=== PATIENT | male | born 1990 | race Caucasian/White ===

== ENCOUNTER 2018-08-11 11:10 | Inpatient (IN) ==
--- NOTE | 2018-08-11 08:17 | Discharge Summary ---
Orders not resulted at time of discharge: Pending orders 08/11/18 00:01 XR hip complete LT [XR] Routine H/H [Hemoglobin and Hematocrit] [HEME] Routine Date of Encounter: 08/12/18 Time of Encounter: 13:45 - Discharge Diagnosis (1) Status post total hip replacement, left Priority: Primary Status: Acute (2) Osteoarthritis of left hip Priority: Primary Status: Chronic Qualifiers: Osteoarthritis type: unspecified Qualified Code(s): M16.12 - Unilateral primary osteoarthritis, left hip (3) Avascular necrosis of bone of left hip Priority: Primary Status: Acute (4) Tobacco use Priority: Secondary Status: Acute (5) Alcohol use Priority: Secondary Status: Chronic - Hospital Course Hospital course: Mr. Parnell is a 27 year old male status post left total hip replacement robotic 08/11/18 with medical history of OA/AVN to left hip and tobacco/alcohol use. Patient seen at bedside, without complaints. A&O x 3 Afebrile, vital signs stable. Intermittent tachycardia likely related to alcohol withdraw and episodes of pain. Per nursing - patient admitted to drinking "4-5 beers + a pint" daily but he did not score on the CIWA scale and did not require medical intervention. He is asymptomatic. Will have home health recheck vitals tomorrow. Labs reviewed. H/H - 10.4/30.3 stable, asymptomatic Pain control: adequate Participating in PT. All questions and concerns addressed. Educated on use of incentive spirometer. Encouraged ambulation and proper hydration. Patient educated on post-operative restrictions and post-operative care. Assessment and plan: Continue with postoperative care Discharge plan: Home with home health, discharge today. - Time Spent with Patient Total time spent providing and/or coordinating discharge services: - Discharge Medications Home Medications: Aspirin Enteric Coated [Aspirin EC] 325 mg PO BID #20 tablet. 08/11/18 [Rx] Docusate [Colace] 100 mg PO BID 10 Days #20 capsule 08/11/18 [Rx] HYDROcodone/Acet 5/325 mg [[place] 5-325 mg] 1 tab PO TID PRN 08/11/18 [History] Ibuprofen 800 mg PO TID PRN 08/11/18 [History] OxyCODONE Immed Rel [Roxicodone 5 MG] 5 mg PO Q6HR PRN 7 Days #28 tablet 08/11/18 [Rx] Tizanidine HCl 4 mg PO TID PRN 08/11/18 [History] Allergies/Adverse Reactions: Allergy/AdvReac Type Severity Reaction Status Date / Time No Known Allergies Allergy Verified 08/11/18 13:06 Date of admission: 08/11/18 Primary care physician: Tori Rodriguez CNP Discharging clinician: Ethan Juarez Anticipated date of discharge: 08/12/18 Labs on day of discharge: Short CBC 08/12/18 Range/Units 03:52 Hgb 10.4 L D (12.9-16.9) g/dL Hct 30.3 L (37.5-50.1) % BMP 08/12/18 Range/Units 03:52 Sodium 135 L (136-145) mEq/L Potassium 4.2 (3.5-5.1) mEq/L Chloride 96 L (98-107) mEq/L Carbon Dioxide 25 (23-29) mEq/L BUN 16 (6-20) mg/dL Creatinine 1.06 (0.70-1.30) mg/dL Glucose 164 H (70-105) mg/dL Calcium 8.0 L (8.6-10.3) mg/dL - Impressions Hip X-Ray 08/11/18 00:01 IMPRESSION: Postoperative left hip total arthroplasty. D/ / 08/11/2018 20:00:12 Gurinder Reyna MD / Erica Ly Interpreting Provider: Gurinder Reyna MD - Patient Status Disposition: Home Health Service Condition: Good Functional capacity at discharge: uses cane/walker Overall status at discharge: patient is back to baseline - Discharge Instructions Follow Up With: Tori Rodriguez CNP [Primary Care Provider] - Additional Instructions: Discharge Instructions: Total Hip Replacement Please call [facility] ([phone]), your Primary Care Physician, or report to the Emergency Room if you have any of the following symptoms: Nausea, vomiting, fever greater that 101.5, swelling, chest pain, shortness of breath, increased pain/redness/drainage/odor for your incision site, numbness/tingling, or any other concerning symptoms. ACTIVITY:Weight-bearing as tolerated for 8 weeks with hip dislocation precautions that physical therapy taught you. You may progress as tolerated under the guidance of your physical therapist. You do not need to sleep with a pillow between your legs. You can also seep on the operative side or on your stomach. Incentive Spirometer 10 times an hour. MEDICATIONS: Upon discharge resume your home medications. Take all the medications as prescribed. Take a stool softener if taking narcotic pain medications. Stool softeners are only effective if you drink enough fluids. Drink 6-8 glass of water or fluids a day, unless this is not allowed for another health problem. Despite using stool softeners, if you haven't had a bowel movement in 3 days, please switch to a gentle laxative. Gentle laxatives are sold over the counter. You should have a bowel movement within 24 hours, if not call the office. You will be discharged from the hospital with a prescription for pain medication. You are encouraged to decrease the use of narcotic pain medication as tolerated. Should you require a refill, please call the office. [facility] prescribes narcotic pain medication for only 4-6 weeks after surgery. If you require pain medication beyond this time period, you may be referred to your Primary Care Physician or to the Pain Clinic for further evaluation. Plan ahead for refills on pain medication as many narcotics either need to be picked up at the office or mailed. It is best to call 48-72 hours in advance of needing a prescription refill so you don't run out of medication. To help control the post-operative pain, you may take NSAIDs (Aleve,Advil, Motrin, ibuprofen, naprosyn) or Tylenol as prescribed on the bottle in addition to the pain medication. ANTICOAGULATION (blood thinners): Continue your Aspirin, Lovenox or Coumadin as prescribed to help prevent a blood clot in the leg or in the lungs. As long as your incision remains dry and you tolerate the NSAIDs (Aleve, Advil, Motrin, Ibuprofen, Naprosyn), it is OK to use the NSAIDS while you are taking your anticoagulation medication. Should your incision start to drain, stop the NSAID and contact our office. Common symptoms of blood clot in the legs include: localized pain, swelling, calf tenderness, redness or discoloration of the skin. Blood clot in the lung symptoms include: shortness of breath, rapid pulse, sweating, and chest pain that worsens with deep breathing, coughing up blood, lightheadedness, feelings of anxiety. If you experience any of these symptoms notify your physician immediately, go to the emergency room, or if having trouble breathing, call 911. WOUND CARE: Leave the dressing on for 7 to 10days. You may change the dressing if it is saturated greater than 50%. Do not get the dressing wet at anytime. Wash your hands with antibacterial soap, rinse and dry prior to any wound care. If you have jayesh the visiting nurse or rehab facility can remove the stapes 10-14 days after surgery and place steri-strips across the wound. Leave the steri-strips in place until they fall off on their own. You may let water from the shower run on top of the steri-strips. If you do not have a visiting nurse or rehab facility, you will need to return to the office at 10-14 days for the jayesh to be removed. If you have itching or redness around the dressing call the office. FOLLOW-UP: Please follow up with your surgeon in the orthopedic clinic in 6 weeks from the day of surgery. If you have jayesh that need to be removed, you will need to come back to the office in 10-14 days from the day of surgery. - Diet and Activity Activity: ambulate only with your walker, as per physical therapy Diet: advance to your usual diet
--- NOTE | 2018-08-11 11:11 | Anesthesia Evaluation PreOp ---
Date of Encounter: 08/11/18 Time of Encounter: 13:12 - Past History Planned Operation: Left Total Hip Arthroplasty Cardiac History: Denies any Significant Hx Pulmonary History: Smoker (2 years) DISINTEGRATOR History: Denies Any Significant HX Other Medical History: Denies Any Significant HX Anesthesia History: No Prior Anesthetic Complications, Past Anesthesia Alcohol Use: occasionally Drug use: none Medications and Allergies Aspirin Enteric Coated [Aspirin EC] 325 mg PO BID #20 tablet.dr 08/11/18 [Rx] Docusate [Colace] 100 mg PO BID 10 Days #20 capsule 08/11/18 [Rx] OxyCODONE Immed Rel [Roxicodone 5 MG] 5 mg PO Q6HR PRN 7 Days #28 tablet 08/11/18 [Rx] Tizanidine HCl 4 mg PO TID PRN 08/11/18 [History] Allergy/AdvReac Type Severity Reaction Status Date / Time No Known Allergies Allergy Verified 08/11/18 13:06 - Meds/Allergy Pre-op Review Medications Reviewed: Yes Allergies Reviewed: Yes Beta Blockers on Current Med List: No Anesthesia Results - Labs Laboratory Tests 08/04/18 08/04/18 08/04/18 16:00 16:00 16:00 WBC 10.7 Hgb 15.4 Hct 44.9 Plt Count 247 PT 10.4 INR 0.9 APTT 22.4 L Sodium 139 Potassium 3.8 BUN 20 Creatinine 1.21 Anesthesia Exam O2 Sat Height 1.78 m Weight 73.482 kg O2 Sat by Pulse Oximetry 98 Vital Signs Temp Pulse Resp BP Pulse Ox 99.1 F 70 18 136/69 98 08/11/18 11:58 08/11/18 11:58 08/11/18 11:58 08/11/18 11:58 08/11/18 11:58 Height: 5'10" Weight: 162 lbs NPO (# of Hours): 8 Pain Scale: 0 Pain Scale Used: Numeric (1 - 10) - HEENT Pupil (Motor): EOMI Mallampati: II Teeth: Normal Oral Opening: Greater than 3 - DISINTEGRATOR LOC: Oriented DISINTEGRATOR Motor: Normal RUE, Normal LUE, Normal RLE, Normal LLE, Normal Face DISINTEGRATOR Sensory: Normal: RUE, LUE, RLE, LLE, Face - Cardiac Rhythm: Regular Murmur: None - Pulmonary Breath Sounds: bilateral Clear Respiratory Effort: Symmetrical Anesthesia Assess/Plan ASA Score: 2 Level of consciousness: Cooperative, Oriented, Tranquil Anesthetic Plan: General Reason for No Neuroaxial/Regional Block: Patient refusal Monitoring Plan: Standard Monitors Recovery Plan: PACU
[2018-08-11] MEDS ORDERED: CeFAZolin Syr 2,000MG/20 ML 2,000 MG/20 ML SYRINGE IVPB ONE (11:55)
[2018-08-11] MEDS ORDERED: Ringers Solution, Lactated 1,000 ML IVC SCH ×2 (12:00→17:02)
--- NOTE | 2018-08-11 12:14 | History & Physical Report ---
Date of Encounter: 08/11/18 Time of Encounter: 12:13 24 Hour HP Update - Instructions Instructions: If the History and Physical is less than 30 days old and was completed prior to A.M. admission and or procedure and has NOT been updated on calendar day of procedure please complete this update prior to performing procedure. - Update Patient reports changes in Medical Condition: No Changes in examination, assessment, or condition: No Changes in Medication: No Preop tests/diagnostics Reviewed: Yes Surgery Remains Indicated: Yes Consent for Planned Operative Procedure(s) Verified: Yes - Pre-Operative Checklist Preoperative Checklist Indicated: No Prophylactic Antibiotic Ordered: Yes Is VTE Prophylaxis Indicated?: Yes
[2018-08-11] MEDS ORDERED: Albuterol 2.5 MG/3 ML NEBULIZER IH ONE (12:30)
[2018-08-11] MEDS ORDERED: *HR* FentaNYL (PF) 100 MCG/2 ML VIAL ONE (13:13)
[2018-08-11] MEDS ORDERED: *HR* Midazolam HCl 2 MG/2 ML VIAL ONE (13:13)
[2018-08-11] MEDS ORDERED: Ondansetron 4 MG/2 ML VIAL IVP ONE (13:14)
[2018-08-11] MEDS ORDERED: *HR* OxyCODONE Immed Rel 5 MG TABLET PO PRN ×2 (13:14→17:02)
[2018-08-11] MEDS ORDERED: *HR* HYDROmorphone (PF) 1 MG/ML SYRINGE IVP PRN (13:14)
[2018-08-11] MEDS ORDERED: *HR* Propofol 200 MG/20 ML VIAL IVP ONE (13:14)
[2018-08-11] MEDS ORDERED: *HR* Rocuronium Bromide 50 MG/5 ML VIAL ONE (13:18)
[2018-08-11] MEDS ORDERED: Lidocaine -MPF 2% 2 ML VIAL ONE (13:18)
[2018-08-11] MEDS ORDERED: Lidocaine -MPF 4% 5 ML AMPUL ONE (13:19)
[2018-08-11] MEDS ORDERED: *HR* Metoprolol 5 MG/5 ML VIAL IVP ONE (13:22)
[2018-08-11] MEDS ORDERED: Ethanol\\Acetic Acid\\Na Ace\\Ben 1,000 ML IRRIG.SOLN IR ONE (13:55)
[2018-08-11] MEDS ORDERED: KETAMINE HCL 50 MG/ML SYRINGE IV ONE (14:03)
[2018-08-11] MEDS ORDERED: Acetaminophen IV 1,000 MG/100 ML INFUS..BTL ONE (14:03)
[2018-08-11] MEDS ORDERED: Dexamethasone 4 MG/ML VIAL ONE (14:32)
[2018-08-11] MEDS ORDERED: Ondansetron 4 MG/2 ML VIAL ONE (14:32)
[2018-08-11] MEDS ORDERED: Tranexamic Acid 1,000 MG/10 ML VIAL ONE (14:35)
[2018-08-11] MEDS ORDERED: *HR* HYDROMORPHONE 2 MG/ML VIAL ONE (14:41)
[2018-08-11] MEDS ORDERED: Neostigmine Methylsulfate 3 MG/3 ML SYRINGE ONE (15:28)
--- NOTE | 2018-08-11 15:29 | Orthopedic Operative Note ---
Date of procedure: 08/11/18 Pre-op diagnosis: Left hip arthritis Post-op diagnosis: same Procedure: Procedure: Left Total Hip Replacment robotic-assisted Estimated blood loss: 200 cc Hardware: Metal and polyethylene replacement. Michael DM Cup: 60 cup Femoral size 10 stem Head: 12 head with Danielle Procedural Notes: Grade 4 arthritic changes femoral head acetabular socket, procedure performed with robotic assistance. The operative leg is 13 mm shorter than nonoperative as measured by preoperative CT scan Operative procedure: The patient was brought to the operating room and placed on the operating room table. After general anesthesia was administered the patient was placed in the lateral decubitus position with the operative leg up. All pressure points were padded appropriately and the head was stabilized in the neutral position. The operative extremity was prepped and draped in the sterile surgical fashion patient received IV antibiotic prior to skin incision. 3 Steinmann pins were placed in the iliac crest 3 cm proximal to the anterior superior iliac spine this was for the robotic-assisted sensor. This was done through a small 2 cm incision. A standard posterior approach is made to the operative hip, the in cision was made through the skin and subcutaneous tissue hemostasis was obtained with Bovie cautery. Using careful sharp dissection the fascia was identified and incised exposing the external rotators. The greater trochanter was marked, and length was measured at this time utilizing robotic assistance. The external rotators were released off the greater trochanter and tagged with #2 FiberWire s uture. The capsule was T'd open and the hip was brought into internal rotation. Patient noted to have grade 4 arthritic changes femoral head. The femoral neck cut was made at the appropriate level roughly 15 mm proximal to the lesser trochanter aced on preoperative templating. An anterior capsulotomy was performed for the anterior retractor. Soft tissues removed from the acetabulum. Patient noted to have grade 4 arthritic changes acetabulum. The acetabulum reference point was confirmed. The acetabulum was then mapped with robotic assistance. Based on the preoperative plan the acetabulum was reamed in one step with a 59 reamer. The 60 acetabulum was impacted with robotic assistance and 44 degrees of abduction and 204 The hip was brought back in to internal rotation and prepared with the box stamper followed by the canal finder followed by the reaming process to a size 9/10 broaching process in 20 degrees anteversion. It was broached up to the appropriate size 10 Trial reduction revealed leg lengths close to normal. The femoral implant was impacted in place in 20 degrees of anteversion. Trial reduction found the hip to be stable with 12 head and Danielle. The trials were r emoved and the real implants were impacted in place. The hip was reduced, patient had robotic confirmed leg length of 7 mm longer than the contralateral side. The hip had excellent stability with forward flexion to 90 degrees adduction of 30 degrees and internal rotation of 60 degrees. The hip had no shuck. The hip sat with an antibacterial solution. It was irrigated out with 2 L of pulse irrigation. The Steinmann pins were removed. The hip was closed by the PA. The deep tissue was irrigated and closed deep with #1 PDS suture superficially with 0 PDS suture and skin was closed with Dermabond and zip tie. The patient was placed in a sterile dressing and abduction pillow. The patient was extubated and transferred to the recovery room in stable condition. Anesthesia: GETA Surgeon: Ethan Juarez Was there an sales assistant institutional sales present: Yes Asphalt Paver Operator: Valeria Feliciano Estimated blood loss (cc): 200 Condition: stable Disposition: PACU
--- NOTE | 2018-08-11 16:26 | Anesthesia Evaluation Post Op ---
Date of Encounter: 08/11/18 Time of Encounter: 16:26 - Vital Signs Vital Signs: Vital Signs/O2 Sat, Most Current Temp Pulse Resp BP Pulse Ox 99.0 F 106 16 142/90 94 08/11/18 16:00 08/11/18 16:20 08/11/18 16:20 08/11/18 16:20 08/11/18 16:20 - Lungs Lungs: Clear Ascult./Percussion - Airway Airway: Non-obstructed - Cardiovascular Regular Rate - Mental Status Mental Status: Alert & Oriented, Answers Appropriately - Pain Pain Scale: 4 Pain Scale used: Numeric (1 - 10) - Nausea Vomiting Nausea Vomiting: Not Present - Hydration Hydration: Ice chips, Has not voided - Discharge PostOp Status: Transfer Patient to floor
[2018-08-11 16:44] LABS: Hematocrit 40.4 % (37.5-50.1); Hemoglobin 13.7 g/dL (12.9-16.9)
[2018-08-11] MEDS ORDERED: traMADol 50 MG TABLET PO PRN (17:02)
[2018-08-11] MEDS ORDERED: Sennosides 8.6 MG TABLET PO PRN (17:02)
[2018-08-11] MEDS ORDERED: Naloxone 0.4 MG/ML INJ IVP PRN (17:02)
[2018-08-11] MEDS ORDERED: Temazepam 15 MG CAPSULE PO PRN (17:02)
[2018-08-11] MEDS ORDERED: MOM Conc 10 ML UD.LIQ PO PRN (17:02)
[2018-08-11] MEDS ORDERED: *HR* Promethazine 25 MG/ML VIAL IVP PRN (17:02)
[2018-08-11] MEDS ORDERED: Ondansetron 4 MG/2 ML VIAL IVP PRN (17:02)
[2018-08-11] MEDS ORDERED: *HR* Enoxaparin 30 MG/0.3 ML SYRINGE SQ SCH (18:00)
[2018-08-11] MEDS ORDERED: Ringers Solution, Lactated 1,000 ML ONE (18:06)
[2018-08-11] MEDS ORDERED: *HR* LORazepam 2 MG/ML VIAL IVP PRN ×3 (18:11)
[2018-08-11] MEDS: Ascorbic Acid 500 MG TABLET PO SCH (18:43)
[2018-08-11] MEDS: *HR* OxyCODONE/APAP 5/325 TABLET PO PRN ×2 (18:45→22:43)
[2018-08-11] MEDS: *HR* Enoxaparin 30 MG/0.3 ML SYRINGE SQ SCH (18:47)
[2018-08-12 04:38] LABS: Hematocrit 30.3 % (37.5-50.1)
[2018-08-12 04:43] LABS: Hemoglobin 10.4 g/dL (12.9-16.9)
[2018-08-12 04:58] LABS: BUN/Creatinine Ratio 15 (6-26); Blood Urea Nitrogen 16 mg/dL (6-20); Carbon Dioxide 25 mEq/L (23-29); Chloride 96 mEq/L (98-107); Glucose 164 mg/dL (70-105); Osmolality,Calculated 285 (280-300); Potassium 4.2 mEq/L (3.5-5.1); Sodium 135 mEq/L (136-145); eGFR For Non-African Americans > 60 (> 60)
[2018-08-12] MEDS: *HR* Enoxaparin 30 MG/0.3 ML SYRINGE SQ SCH (05:24)
--- NOTE | 2018-08-12 06:44 | Orthopedics Progress Note ---
Date of Encounter: 08/12/18 Time of Encounter: 06:44 - Assessment and Plan (1) Acute blood loss anemia Current Visit: Yes Status: Acute Subjective Interval history: Patient was seen this morning doing well without complaints. Afebrile vital signs stable. Operative extremity: Neurovascularly intact Dressing clean dry and intact Calves nontender Assessment and plan: Continue with postoperative care Hematocrit 30 Objective Vital signs: Vital Signs Temp Pulse Resp BP Pulse Ox 08/12/18 06:17 98.7 F 87 18 125/78 97 08/12/18 05:29 96 08/12/18 03:08 98.7 F 105 16 122/75 96 08/11/18 23:16 98.2 F 77 17 113/60 98 08/11/18 20:42 98.4 F 101 15 135/84 97 08/11/18 19:37 97.7 F 114 16 139/88 98 08/11/18 18:09 97.9 F 103 16 143/94 95 08/11/18 17:30 98.2 F 119 16 128/82 95 08/11/18 17:06 96 08/11/18 17:02 98.8 F 102 16 144/93 93 08/11/18 16:40 99.1 F 103 16 147/90 94 08/11/18 16:30 99.4 F 102 16 146/86 94 08/11/18 16:20 106 16 142/90 94 08/11/18 16:10 117 16 135/89 97 08/11/18 16:00 99.0 F 123 16 131/79 96 08/11/18 11:58 99.1 F 70 18 136/69 98 Intake and Output 08/11/18 08/11/18 08/12/18 15:59 23:59 07:59 Intake Total 100 / 100 50 / 50 Output Total 200 / 200 750 / 750 Balance -200 / -200 100 / 100 -700 / -700 Intake: IV Fluids 100 / 100 Ancef 2,000 MG In 0.9 % Sodium 100 / 100 Chloride 100 ML @ 200 mls/hr IVPB Q8H [facility] Rx#:[id number] Oral 50 / 50 Output: Urine 750 / 750 Estimated Blood Loss 200 / 200 Other: Weight 73.482 kg 81.5 kg Patient Weight 08/12/18 23:59 Weight 81.5 kg - Labs CBC & BMP: 08/12/18 03:52 08/12/18 03:52 Labs: Abnormal lab results Hgb 10.4 g/dL (12.9-16.9) L D 08/12/18 03:52 Hct 30.3 % (37.5-50.1) L 08/12/18 03:52 Sodium 135 mEq/L (136-145) L 08/12/18 03:52 Chloride 96 mEq/L (98-107) L 08/12/18 03:52 Glucose 164 mg/dL (70-105) H 08/12/18 03:52 Calcium 8.0 mg/dL (8.6-10.3) L 08/12/18 03:52 Consult Discharge Plan - Plan Referrals: Tori Rodriguez, PATTI [Primary Care Provider] -
[2018-08-12] MEDS: Ascorbic Acid 500 MG TABLET PO SCH (07:48)
[2018-08-12] MEDS: *HR* OxyCODONE/APAP 5/325 TABLET PO PRN ×2 (07:48→11:48)
[2018-08-12] MEDS ORDERED: Multivit/Ca/Min/Fe/FA 1 TAB TABLET PO SCH (09:00)
[2018-08-12 11:00] VITALS: BP 114/75
--- NOTE | 2018-08-12 16:43 | Physician Discharge Referral ---
Home Health/Hosp Referral Info Transfer to: Home Health Attending Provider: Larry - Diagnosis (1) Status post total hip replacement, left Priority: Primary Status: Acute (2) Osteoarthritis of left hip Priority: Primary Status: Chronic (3) Avascular necrosis of bone of left hip Priority: Primary Status: Acute (4) Tobacco use Priority: Secondary Status: Acute (5) Alcohol use Priority: Secondary Status: Chronic - Respiratory Orders None Smoking Cessation: Smoking cessation has been advised. For more information, call the [place] Tobacco Quit Line at 9-525-PDOD-NOW. - Diet/Nutrition Diet/Nutrition Orders: Regular - Activity Activity Orders: Up ad tova, Ambulate, Chair, Walker - Services Needed Following services are medically necessary services: Nursing, Home Health Aide, Physical Therapy, Occupational Therapy Home Care Orders: Recheck vitals, HR Opsite dressing, leave intact until first post-operative visit. If dressing becomes >50% saturated, contact office, remove dressing and place appropriate dressing in its place. Do not allow for dressing to get wet. Zipline/[place] in place, plan to remove at post-operative day #14-16. Total Joint Precautions x 6 weeks Apply cold therapy wrap 3-6x/day for 20 minutes at a time. Encourage ambulation throughout the day Use Incentive spirometer 10x/hour. Elevate affected extremity above heart as tolerated. Brace: Wear hip abductor brace at night x 6 weeks. - Transfer Medications Home Medications: Aspirin Enteric Coated [Aspirin EC] 325 mg PO BID #20 tablet. 08/11/18 [Rx] Docusate [Colace] 100 mg PO BID 10 Days #20 capsule 08/11/18 [Rx] HYDROcodone/Acet 5/325 mg [[place] 5-325 mg] 1 tab PO TID PRN 08/11/18 [History] Ibuprofen 800 mg PO TID PRN 08/11/18 [History] OxyCODONE Immed Rel [Roxicodone 5 MG] 5 mg PO Q6HR PRN 7 Days #28 tablet 08/11/18 [Rx] Tizanidine HCl 4 mg PO TID PRN 08/11/18 [History] Allergies/Adverse Reactions: Allergy/AdvReac Type Severity Reaction Status Date / Time No Known Allergies Allergy Verified 08/11/18 13:06 Certification: Further, I certify that my clinical findings support that this patient is homebound (i.e. absences from home require considerable and taxing effort and are for medical reasons or church services or infrequently or short duration when for other reasons) because: Homebound Reason: Post-surgery restriction and or conditions limit ability to leave home Attestation: My signature below is to certify that this patient is under my care and that I, or nurse practitioner, or a physician dental assistant instructor working with me, has a [id number] encounter with this patient.
== END 2018-08-12 15:15 | disposition home health service (06) | DRG 470 ==
LOC: SAMDAY 11:10 → 3NENU 17:59
PROVIDERS: ADMIT Orthopaedic Surgery; ATTEND Orthopaedic Surgery